=== PATIENT | female | born 1950 | race Caucasian/White ===

== ENCOUNTER → 2016-08-13 | Outpatient (CLI) | payer MEDICARE, BC ==
[2015-06-25 11:03] VITALS: BP 145/89
[~2016-08-13] MED LIST: high blood pressure; thyroid
--- NOTE | 2016-08-13 13:39 | RAD ---
DATE: 08/13/16 EXAM: DIGITAL DIAGNOSTIC BILATERAL HISTORY: Follow-up asymmetric density in the left breast COMPARISON: Bilateral screening mammogram from 3-16 and diagnostic left mammogram from 9-60 This study was interpreted with the benefit of Computerized Aided Detection (CAD). TECHNIQUE: Routine CC and MLO views of both breasts are obtained. FINDINGS: The breast tissue density is [D ] . Extremely dense breast parenchyma, this reduces the sensitivity of mammograms. There are no dominant suspicious masses, suspicious microcalcifications or evidence of architectural distortion. Stable benign-appearing calcifications are seen in both breasts. Skin and nipples are intact IMPRESSION: Benign findings BI-RADS CATEGORY: 2 BENIGN FINDING(S) RECOMMENDED FOLLOW-UP: 12M 12 MONTH FOLLOW-UP PQRS compliance statement: Patient information was entered into a reminder system with a target due date for the next mammogram. Mammography is a sensitive method for finding small breast cancers, but it does not detect them all and is not a substitute for careful clinical examination. A negative mammogram does not negate a clinically suspicious finding and should not result in delay in biopsying a clinically suspicious abnormality. "Our facility is accredited by the [employer] Mammography [employer]."
== END | disposition home or self-care (01) ==
LOC: MAMMO 09:13
PROVIDERS: ATTEND Internal Medicine Hematology & Oncology
DX: R92.8 Other abnormal and inconclusive findings on diagnostic imaging of breast (principal); N63 Unspecified lump in breast
CPT/HCPCS: G0204; 77066

== ENCOUNTER → 2017-08-15 | Outpatient (CLI) | payer MEDICARE, BC | END | disposition home or self-care (01) | LOC: MAMMO 09:03 | DX: Z12.31 Encounter for screening mammogram for malignant neoplasm of breast (principal); N60.91 Unspecified benign mammary dysplasia of right breast | CPT/HCPCS: 77066; G0279 ==

== ENCOUNTER → 2018-03-14 | Outpatient (CLI) | payer MEDICARE, BC ==
[2015-06-25 11:03] VITALS: BP 145/89
[~2018-03-14] MED LIST changes: +CARV25TA2 PO; +COLE1TAB2 PO; +LEVO50TA5 PO
--- NOTE | 2018-03-14 13:01 | KCIC ---
MRI Lumbar Spine without contrast History: Sacroiliac pain, low back pain for 15 years, leg pain at times Technique: Multiplanar, multi sequential noncontrast MR imaging was performed of the lumbar spine. Contrast: None Comparison: None Findings: Lumbar vertebral body stature is overall preserved, mild superior endplate concavity of L3 without associated marrow edema. There is grade 1 anterior spondylolisthesis at L3-4 and to lesser degree at L4-5. There is moderate to severe degenerative disc disease at L5-S1 and to a somewhat lesser degree at L3-4, mild degenerative disc disease at L4-5, and mild disc desiccation L2-3. Conus terminates at L1. There is no significant marrow edema. There is degenerative endplate change L5-S1. There is retroaortic left renal vein. L2-L3: There is minimal buckling of the ligamentum flavum. Neural foramina and spinal canal are adequate. L3-L4: There is mild buckling of the ligamentum flavum and mild to moderate facet degenerative change. There is minimal partial uncovering of the posterior aspect of the disc due to spondylolisthesis. There is very minimal superimposed bulge. There is posterior annular tear. Spinal canal and neural foramina are adequate. L4-L5: There is minimal posterior bulge. There is posterior annular tear. Spinal canal is adequate. There is minimal facet degenerative change. Neural foramina are overall adequate. L5-S1: Spinal canal and neural foramina are adequate. Impression: 1. There is no significant lumbar spinal stenosis or neural foramina compromise. There is mild grade 1 anterior spondylolisthesis at L3-4 and to lesser degree L4-5. There is moderate to severe degenerative disc disease at L5-S1 and to a somewhat lesser degree at L3-4, minimally at L4-5. Electronically signed by: Tony Barker MD (03/14/2018 12:57 PM) [id number]
== END | disposition home or self-care (01) ==
LOC: KCIC MRI 12:02
PROVIDERS: ATTEND Orthopaedic Surgery Sports Medicine
DX: M51.37 Other intervertebral disc degeneration, lumbosacral region (principal); M43.16 Spondylolisthesis, lumbar region; I10 Essential (primary) hypertension; E03.9 Hypothyroidism, unspecified; Z90.49 Acquired absence of other specified parts of digestive tract; Z90.710 Acquired absence of both cervix and uterus
CPT/HCPCS: 72148

== ENCOUNTER → 2018-03-16 | Outpatient (CLI) | payer MEDICARE, BC ==
[2015-06-25 11:03] VITALS: BP 145/89
[~2018-03-16] MED LIST changes: +BUPIVACAINE MPF 0.25% 10 ML VIAL. ONE; +IOHEXOL 180 MG/ML 10 ML VIAL. ONE; +LIDOCAINE 2% PF Vial for OR 5 ML VIAL. ONE; +methylPREDNISolone ACETATE 40 MG/ML VIAL. ONE; +methylPREDNISolone ACETATE 80 MG/ML VIAL. ONE
--- NOTE | 2018-03-17 03:03 | PAIN ---
DATE OF SERVICE: 03/16/2018 INITIAL CONSULTATION FOR PAIN CLINIC CHIEF COMPLAINT: Low back and bilateral lower extremity pain. HISTORY OF PRESENT ILLNESS: This is a 67-year-old female with history of pain in the low back and bilateral lower extremities for many years. The patient reports it is essentially equal in right and left since early , did not result in any specific injury or accident that she is aware of, gradually increased over time, has been getting much worse over the past year or so. The patient reports it awakens her from sleep once or twice at night, affects her bowel or bladder control and affects her ability to walk at times, mainly with the pain in the posterior hips and low back itself, but the pain can radiate into the lower extremities, both anterior and posterior, laterally, medially into the lower legs to the feet, again right equal to left, usually with walking or standing. The patient has had physical therapy about a year ago, which did not significantly help decrease the pain significantly. The patient has been taking Aleve, which does decrease the pain by about 50%, but it takes about half an hour before she notices the difference after she takes it. The patient reports she enjoys walking and traveling and is not able to do this as easily with pain at this level currently, as well as some difficulty sleeping. The patient did have x-rays of the hips showing no acute pelvic right hip abnormalities and also lumbar MRI scan showing [id number] degenerative disk disease at L5-S1, lesser degree at L3-L4 and L4-L5 with very minimal superimposed disk bulge at L3-L4. The patient rates her disability from 0-10, 10 being the worst, 5 with family home responsibilities, recreational activities, social activity, occupation, sexual behavior, 0 with self-care and 0 with life support activities. The patient reports no loss of motor function with significant fatigability in the bilateral lower extremities with ambulation, again better with sitting or lying down, but again the pain is waking her from sleep. PAST MEDICAL HISTORY: Significant for hypertension, hypothyroidism. PREVIOUS SURGERY: Includes partial thyroidectomy, bilateral cataract extractions, hysterectomy, cholecystectomy, hernia repair, and breast biopsy, which was benign. CURRENT MEDICATIONS: Include carvedilol, colestipol, and levothyroxine. ALLERGIES: The patient has no known drug allergies. FAMILY HISTORY: Significant for cancers. SOCIAL HISTORY: The patient does not drink alcohol, does not smoke, does not use any illegal, illicit or recreational drugs. He is , lives with her spouse, lives locally in [place], [place] and is currently retired. REVIEW OF SYSTEMS: The patient's review of systems is positive for those items mentioned in history of present illness. All systems reviewed and otherwise negative. It is complete, full and well documented on the patient's chart. PHYSICAL EXAMINATION: VITAL SIGNS: The patient's blood pressure is 133/85, pulse is 54, respirations 18, temperature is 98.0 degrees Fahrenheit, height is 5 feet 5 inches, weight is 165 pounds. GENERAL: The patient is awake, alert, oriented, appropriate, very pleasant demeanor. HEENT: Head shows normocephalic, atraumatic. Extraocular movements are intact, symmetrical. Oral cavity: Mucous membranes are moist and pink. Dentition is intact. NECK: Shows anterior throat supple without palpable lymphadenopathy noted. Swallow reflex is symmetrical. CHEST: Shows normal on inspection. Breath sounds clear to auscultation bilaterally. HEART: Shows S1, S2 clear. No murmurs auscultated. ABDOMEN: Soft, nontender, nondistended. No palpable organomegaly is noted. No rebound or guarding demonstrated. BACK: Shows spine grossly in the midline. Normal appearing thoracic kyphosis and lumbar lordotic curvature. No previous scars are noted. Lumbar paraspinous muscle shows symmetrical on inspection, with palpation shows some mild tenderness in the inferior aspect of the cervical or the lumbar paraspinous musculature bilaterally, but is symmetrical without evidence of atrophy, hypertrophy. No tenderness over the sacrum or the spinous processes. Sacroiliac palpation in the posterior superior iliac spine, as well as the sacroiliac region itself is very tender with palpation, even moderate palpation and very, very tender without radiation bilaterally, essentially equal right and left. The patient has good rotational motion of lumbar spine, both laterally, as well as extension and flexion greater than 10 degrees and forward flexion 45 degrees without significant pain reported. LOWER EXTREMITIES: Show deep tendon reflexes are 2+ at patellar, 1+ at tendo calcaneus tendons. Motor exam is strong with 5/5 dorsiflexion, extension, quadriceps and hamstring flexion and symmetrical. Peripheral pulses are 1+, posterior tibial. No peripheral edema is noted. Lower extremities are warm and dry to touch, equal in color and appearance. Straight leg raise noted to be negative for reproduction of any radicular symptoms. Gaenslen's maneuver; however, is positive, more on the right than the left with very mildly positive on the left. Edinson's maneuver is negative bilaterally. The patient does have some mild tenderness over the greater trochanter on the right hip, but not the left. The patient is able to stand, stand on her toes without difficulty or loss of balance, walks with a normal appearing gait without any assistive devices. SKIN: The patient's skin shows warm and dry, good turgor. No edema. No sores, rashes or bruising. IMPRESSION: 1. This is a 67-year-old female with long history, approximately 18 years, of low back pain to some extent, another with some radiation to the lower extremities as well, but with significant tenderness over the sacroiliac joints consistent with sacroiliitis. 2. Hypertension. PLAN: Options were discussed with the patient including conservative medical management, physical therapy, interventional techniques and she elected to proceed with interventional techniques. We discussed bilateral sacroiliac joint injections with the patient using description, as well as anatomical models to describe the procedure. Risks were then discussed including, but not limited to bleeding, infection, possibility of intravascular injection sequelae, spread of local anesthetic and numbness, side effects of steroid medication and poor results regarding pain control. The patient understands and wished to proceed. The patient to return to clinic in approximately 2 weeks for followup or as necessary and is scheduled to see neurosurgery for evaluation regarding her lumbar MRI scan. DIAGNOSIS: Bilateral sacroiliitis. PROCEDURE: Bilateral sacroiliac joint injections using C-arm fluoroscopic guidance under sterile prep and drape using local anesthetic. MEDICATIONS INJECTED: A total of 80 mg of Depo-Medrol, 40 mg per side and total of 6 mL of 0.25% bupivacaine, 3 mL per side after negative aspiration and a total of 3 mL of Isovue contrast. 1.5 mL on each side. CONDITION ON DISCHARGE: Stable. The patient tolerated the procedure well, had no complications. RONN MATHEW MD DR: CHRIS/alis JOB#: [id number] / [id number]
== END | disposition home or self-care (01) ==
LOC: PNCL 10:31
PROVIDERS: ATTEND Anesthesiology
DX: M46.1 Sacroiliitis, not elsewhere classified (principal); I10 Essential (primary) hypertension; Z90.710 Acquired absence of both cervix and uterus; Z79.899 Other long term (current) drug therapy; E89.0 Postprocedural hypothyroidism; Z90.49 Acquired absence of other specified parts of digestive tract; Z98.890 Other specified postprocedural states; Z98.42 Cataract extraction status, left eye; Z98.41 Cataract extraction status, right eye; Z96.1 Presence of intraocular lens
CPT/HCPCS: G0260; J1040; J2001; J3490; Q9965; 27096; 77002; J1030

== ENCOUNTER → 2018-06-22 | Outpatient (CLI) | payer MEDICARE, BC ==
[2015-06-25 11:03] VITALS: BP 145/89
[~2018-06-22] MED LIST changes: -BUPIVACAINE MPF 0.25% 10 ML VIAL. ONE; -LIDOCAINE 2% PF Vial for OR 5 ML VIAL. ONE
--- NOTE | 2018-06-22 17:01 | PAIN ---
DATE OF SERVICE: 06/22/2018 DIAGNOSES: 1. Bilateral sacroiliitis. 2. Lumbar radiculopathy with lumbar degenerative disk disease. HISTORY OF PRESENT ILLNESS: The patient is a 67-year-old female who returns for followup status post bilateral sacroiliac joint injection on 03/16/2018. The patient reports no significant decrease in pain on long-term, only very minimal decrease initially and only very briefly. The patient reports pain still in the low back and radiating to bilateral lower extremities into the lower legs and into the feet, mostly posterior lateral thighs, lateral anterior thighs, medial thighs, lower legs into the posterior calf, lateral calf, right greater than left, but present bilaterally. It is worse with standing, walking, especially climbing hills or stairs, described as aching, sharp, shooting, tingling, radiating, on and off in intensity, better with sitting or lying down, but awakens her from sleep occasionally, not every night. The patient reports it is an 8 on a scale of 10 at its worst, 8 on average, 7 at its least, is an 8 today. The patient reports no loss of motor function with significant pain with walking, standing, changing positions, again in a radicular pattern into the feet bilaterally, worse on the right. The patient reports no new motor or sensory deficits, no new bowel or bladder incontinence or other complaints. PHYSICAL EXAMINATION: VITAL SIGNS: The patient's blood pressure 136/80, pulse 59, respirations 16, temperature 97.9 degrees Fahrenheit, height is 5 feet 5 inches, weight 166 pounds. GENERAL: The patient is awake, alert, oriented, appropriate, very pleasant demeanor. HEENT: Head shows normocephalic, atraumatic. Extraocular movements are intact and symmetrical. Oral cavity, mucous membranes are moist and pink. Dentition is intact. NECK: Shows anterior throat supple without palpable lymphadenopathy noted. Swallow reflex symmetrical. CHEST: Shows normal with inspection. Breath sounds clear to auscultation bilaterally. HEART: Shows S1, S2 clear. No murmurs auscultated. ABDOMEN: Soft, nontender, nondistended. No palpable organomegaly is noted. No rebound or guarding demonstrated. BACK: Shows spine grossly in the midline. Normal appearing thoracic kyphosis, some minor flattening of lumbar lordotic curvature. Lumbar paraspinous muscle shows symmetrical on inspection, with palpation shows some moderate tenderness only diffusely in the low lumbar distribution. The patient has good rotational motion of lumbar spine, both laterally as well as extension and flexion without difficulty and only very mild tenderness over the sacroiliac regions and the posterior superior iliac spine on exam today without radiation. EXTREMITIES: Lower extremities show deep tendon reflexes 2+ in the patellar, 1+ tendo calcaneus tendons. Motor exam is strong with 5/5 dorsiflexion, extension, quadriceps and hamstring flexion and symmetrical. Peripheral pulses are 1+ posterior tibial. No peripheral edema is noted bilaterally. Options were discussed with the patient. The patient's old chart was reviewed, as her current medication regimen updated. Current review of systems updated today as well. We will proceed with a lumbar epidural steroid injection today with fluoroscopic guidance. Risks were again discussed including, but not limited to bleeding, infection, possibility of epidural hematoma and subsequent neurological compromise, dural puncture headache, spinal cord and/or nerve damage, side effects of steroid medication and poor results regarding pain control. The patient understands and wished to proceed. The patient to return to clinic in approximately 2 weeks for followup, was counseled on return appointment, activity level and side effects to be aware of. DIAGNOSES: Lumbar radiculopathy with lumbar degenerative disk disease. PROCEDURE: Lumbar epidural steroid injection, translaminar approach at L4-L5 level using C-arm fluoroscopic guidance under sterile prep and drape using local anesthetic. MEDICATION INJECTED: A total of 120 mg Depo-Medrol, plus 10 mL of preservative-free normal saline, 2 mL Isovue for contrast. CONDITION AT DISCHARGE: Stable. The patient tolerated the procedure well, had no complications. RONN MATHEW MD DR: CHRIS/alis JOB#: [id number] / [id number]
== END | disposition home or self-care (01) ==
LOC: PNCL 13:58
PROVIDERS: ATTEND Anesthesiology
DX: M51.16 Intervertebral disc disorders with radiculopathy, lumbar region (principal); M46.1 Sacroiliitis, not elsewhere classified
CPT/HCPCS: 62323; J1030; J1040; Q9965

== ENCOUNTER → 2018-07-06 | Outpatient (CLI) | payer MEDICARE, BC ==
[2015-06-25 11:03] VITALS: BP 145/89
[~2018-07-06] MED LIST changes: -IOHEXOL 180 MG/ML 10 ML VIAL. ONE; -methylPREDNISolone ACETATE 40 MG/ML VIAL. ONE; -methylPREDNISolone ACETATE 80 MG/ML VIAL. ONE
--- NOTE | 2018-07-06 12:09 | PAIN ---
DATE OF SERVICE: 07/06/2018 DIAGNOSES: Lumbar radiculopathy with lumbar degenerative disk disease. HISTORY OF PRESENT ILLNESS: The patient is a 67-year-old female who returns for followup status post lumbar epidural steroid injection x 1. The patient reports she did very well with about 75% improvement initially, now reports 40% improvement overall, but still doing quite well. The patient reports increase in her activity with greater ease and comfort, doing household activities, walking greater distances, climbing stairs, standing on ladders and doing quite well. The pain in her legs is completely gone. She still has some pain across the low back, which is only minimal. The patient reports it is a 4-5 on a scale of 10 at its worst, on average and a 4 at its least and is a 4 today. The patient reports no new motor or sensory deficits, no new bowel or bladder incontinence, with increase in activity is noted. Reports the pain still aching and dull in the low back itself, but the legs are doing much better. The patient reports no new changes or deficits. PHYSICAL EXAMINATION: VITAL SIGNS: The patient's blood pressure 156/92, pulse 63, respirations are 16, temperature is 97.6 degrees Fahrenheit, height is 5 feet 5 inches, weight is 161 pounds. GENERAL: The patient is awake, alert, oriented, appropriate, very pleasant demeanor. HEENT: Head is normocephalic, atraumatic. Extraocular movements intact and symmetrical. Oral cavity: Mucous membranes moist and pink. Dentition is intact. NECK: Shows anterior throat supple without palpable lymphadenopathy noted. Swallow reflex symmetrical. CHEST: Shows normal with inspection. Breath sounds clear to auscultation bilaterally. HEART: Shows S1, S2 clear. No murmurs auscultated. ABDOMEN: Soft, nontender, nondistended. No palpable organomegaly is noted. No rebound or guarding demonstrated. BACK: Shows spine grossly in the midline. Normal appearing thoracic kyphosis and lumbar lordotic curvature. Lumbar paraspinous muscle shows symmetrical on inspection, on palpation shows some moderate tenderness only diffusely without significant radiation. The patient has good rotational motion of lumbar spine, both laterally as well as extension and flexion without difficulty. EXTREMITIES: Lower extremities show deep tendon reflexes at 2+ in the patellar, 1+ tendo-calcaneus tendons. Motor exam is strong with 5/5 dorsiflexion, extension, quadriceps and hamstring flexion symmetrical. Peripheral pulses are 1+ posterior tibia. No peripheral edema is noted bilaterally. Options were discussed with the patient. The patient's old chart was reviewed as her current medication regimen updated. Current review of systems updated today as well. We will hold on any further injections per the patient's choice at this time as she feels she is doing very well. I would like to continue to increase activity as tolerated. We will have the patient return to clinic on an as needed basis and increase activity cautiously but without significant limitation at this time or restriction, and the patient will follow up on as needed basis. RONN MATHEW MD DR: CHRIS/alis JOB#: [id number] / [id number]
== END | disposition home or self-care (01) ==
LOC: PNCL 11:08
PROVIDERS: ATTEND Anesthesiology
DX: M51.16 Intervertebral disc disorders with radiculopathy, lumbar region (principal)
CPT/HCPCS: G0463

== ENCOUNTER → 2018-08-16 | Outpatient (CLI) | payer MEDICARE, BC ==
[2015-06-25 11:03] VITALS: BP 145/89
--- NOTE | 2018-08-16 13:15 | RAD ---
DATE: 08/16/2018 EXAM: MAMMO ARMIN SCREENING BILATERAL HISTORY: Routine screening COMPARISON: 08/15/2017 This study was interpreted with the benefit of Computerized Aided Detection (CAD). Breast Density: HETERO The breast parenchyma is heterogenously dense, which could reduce sensitivity of mammography. Breast parenchyma level C. FINDINGS: 2-D and 3-D tomosynthesis imaging was performed in CC and MLO projections. No new or enlarging breast densities are seen. Benign type calcifications are present. No suspicious microcalcifications have developed. IMPRESSION: Stable mammograms without evidence of malignancy. BI-RADS CATEGORY: 2 BENIGN FINDING(S) RECOMMENDED FOLLOW-UP: 12M 12 MONTH FOLLOW-UP PQRS compliance statement: Patient information was entered into a reminder system with a target due date for the next mammogram. Mammography is a sensitive method for finding small breast cancers, but it does not detect them all and is not a substitute for careful clinical examination. A negative mammogram does not negate a clinically suspicious finding and should not result in delay in biopsying a clinically suspicious abnormality. "Our facility is accredited by the [employer] Mammography Program."
== END | disposition home or self-care (01) ==
LOC: MAMMO 10:04
PROVIDERS: ATTEND Internal Medicine Hematology & Oncology
DX: Z12.31 Encounter for screening mammogram for malignant neoplasm of breast (principal)
CPT/HCPCS: 77063; 77067

== ENCOUNTER → 2018-11-15 | Outpatient (CLI) | payer MEDICARE, BC ==
[2015-06-25 11:03] VITALS: BP 145/89
[~2018-11-15] MED LIST changes: +IOHEXOL 180 MG/ML 10 ML VIAL. ONE; +methylPREDNISolone ACETATE 40 MG/ML VIAL. ONE; +methylPREDNISolone ACETATE 80 MG/ML VIAL. ONE
--- NOTE | 2018-11-16 02:29 | PAIN ---
DATE OF SERVICE: 11/15/2018 PROGRESS NOTE FOR PAIN CLINIC DIAGNOSES: Lumbar radiculopathy with lumbar degenerative disk disease. HISTORY OF PRESENT ILLNESS: The patient is a 68-year-old female who returns for followup status post lumbar epidural steroid injection x 1 on 06/22/2018. The patient did very well with about 40% improvement overall. The patient reports that the pain is returning to some extent in the low back and right leg greater than the left but present bilaterally in the posterior gluteus, lateral thighs, anterior medial thigh on the right more than the left but present bilaterally. The patient reports she has been increasing for about 2 months. She has been initially increasing her distance walking and doing activities at home, travel with greater ease and comfort. She does have a trip coming up in about a week and she would like to get feeling better before she travels because will be doing a lot of walking on her trip. The patient reports she is sleeping well at night, does not bother her when she is sitting or lying down, sleeps 7-8 hours without difficulty and only when she is standing, walking or changing positions as she noticed the pain. The patient reports over the past week, it has been a 7 on a scale of 10 at its worst, 7 on average, 6 at its least and is a 6 today. The patient reports it is aching and dull, stabbing at times and radiating into the right leg greater than the left. The patient reports no new motor or sensory deficits and no new bowel or bladder incontinence or other complaints. PHYSICAL EXAMINATION: VITAL SIGNS: Today, the patient's blood pressure is 126/76, pulse 57, respirations are 16 and temperature is 98.1 degrees Fahrenheit. Weight is 166 pounds. GENERAL: The patient is awake, alert, oriented, appropriate and very pleasant demeanor. HEENT: Shows normocephalic and atraumatic. Extraocular movements are intact and symmetrical. Oral cavity: Mucous membranes are moist and pink. Dentition is intact. NECK: Shows anterior throat supple without palpable lymphadenopathy noted. Swallow reflex is symmetrical. CHEST: Shows normal on inspection. Breath sounds are clear bilaterally. HEART: Shows S1 and S2 clear. No murmurs auscultated. ABDOMEN: Soft, nontender and nondistended. No palpable organomegaly is noted. No rebound or guarding demonstrated. BACK: Shows spine grossly in the midline. Normal appearing thoracic kyphosis, some minor flattening of lumbar lordotic curvature. Lumbar paraspinous musculature shows symmetrical on inspection and palpation shows some mild tenderness, but only diffusely in the middle and lower distribution of the paraspinous muscles. The patient has good rotational motion of the lumbar spine both laterally as well as extension and flexion without difficulty. EXTREMITIES: Lower extremities show deep tendon reflexes 2+ in the patellar, 1+ tendo-calcaneus tendons. Motor exam is strong with 5/5 dorsiflexion, extension, quadriceps and hamstring flexion and symmetrical. Peripheral pulses are 1+ posterior tibia. No peripheral edema is noted. Options were discussed with the patient. The patient's old chart was reviewed as well as her current medication regimen updated. Current review of systems updated today as well. We will proceed with a lumbar epidural steroid injection today with fluoroscopic guidance. Risks were again discussed including, but not limited to bleeding, infection, possibility of epidural hematoma and subsequent neurological compromise, dural puncture, headaches, spinal cord and/or nerve damage, side effects of steroid medication and poor results regarding pain control. The patient understands and wished to proceed. The patient will return to the clinic in approximately 2 weeks for followup, was counseled as to return appointment, activity level and side effects to be aware of. DIAGNOSIS: Lumbar radiculopathy with lumbar degenerative disk disease. PROCEDURES: Lumbar epidural steroid injection, translaminar approach at L4-L5 level using C-arm fluoroscopic guidance under sterile prep and drape using local anesthetic. MEDICATION INJECTED: A total of 120 mg Depo-Medrol plus 10 mL of preservative-free normal saline and 2 mL of Isovue for contrast. CONDITION AT DISCHARGE: Stable. The patient tolerated the procedure well, had no complications. RONN MATHEW MD DR: CHRIS/alis JOB#: [id number] / [id number]
== END ==
LOC: PNCL 08:53
PROVIDERS: ATTEND Anesthesiology
DX: M51.16 Intervertebral disc disorders with radiculopathy, lumbar region (principal); M54.5 Low back pain; M79.652 Pain in left thigh; M79.651 Pain in right thigh
CPT/HCPCS: 62323; J1030; J1040; Q9965

== ENCOUNTER → 2019-08-20 | Outpatient (CLI) | payer MEDICARE, BC ==
[2015-06-25 11:03] VITALS: BP 145/89
[~2019-08-20] MED LIST changes: -IOHEXOL 180 MG/ML 10 ML VIAL. ONE; -methylPREDNISolone ACETATE 40 MG/ML VIAL. ONE; -methylPREDNISolone ACETATE 80 MG/ML VIAL. ONE
--- NOTE | 2019-08-20 18:54 | RAD ---
BILATERAL SCREENING MAMMOGRAM, 3-D History: Routine screening. Comparison: 08/16/2018, 08/15/2017, 08/13/2016, 08/13/2015. Technique: MLO and CC digital tomosynthesis (3D) images obtained. Radiologist reviewed these images on dedicated workstation. Findings: Breast Tissue Density C : The breasts are heterogeneously dense, which may obscure small masses. There are no dominant masses, suspicious microcalcifications, or architectural distortion. Benign calcifications are present. IMPRESSION: No mammographic evidence of malignancy. Recommend routine screening. BI-RADS category 1: Negative. The images were reviewed with computer-aided detection. Patient information is entered into reminder system with a target due date for the next screening mammogram. Mammography is the most sensitive method for finding small breast cancers, but it does not detect them all and is not a substitute for careful clinical examination. A negative mammogram does not negate a clinically suspicious finding and should not result in delay in biopsying a clinically suspicious abnormality. "Our facility is accredited by the [employer] Mammography [employer]." Electronically signed by: Juan M Garcia MD (08/20/2019 6:52 PM) [id number]
== END ==
LOC: MAMMO 08:51
PROVIDERS: ATTEND Internal Medicine Hematology & Oncology
DX: Z12.31 Encounter for screening mammogram for malignant neoplasm of breast (principal)
CPT/HCPCS: 77063; 77067

== ENCOUNTER → 2020-10-27 | Outpatient (CLI) | payer MEDICARE, BC ==
[2015-06-25 11:03] VITALS: BP 145/89
--- NOTE | 2020-10-27 10:50 | RAD ---
EXAM: Bilateral digital screening mammogram with tomosynthesis. HISTORY: 70-year-old female presents for screening mammography. TECHNIQUE: Full-field digital craniocaudal and mediolateral oblique 2D and 3D tomosynthesis images of both breasts are obtained for evaluation. Computer aided detection was applied. COMPARISON: 08/16/2018 BREAST PARENCHYMAL DENSITY: Level D - Extremely dense. FINDINGS: There is no new suspicious mass, microcalcification or region of architectural distortion. IMPRESSION: BI-RADS Category 2: Benign finding(s). RECOMMENDATION: Annual mammography is recommended. If your mammogram demonstrates that you have dense breast tissue, which could hide abnormalities, and if you have other risk factors for breast cancer that have been identified, you might benefit from s upplemental screening tests that may be suggested by your ordering physician. Dense breast tissue, i n and of itself, is a relatively common condition. This information is not provided to cause undue c oncern, but rather to raise your awareness and to promote discussion with your physician regarding th e presence of other risk factors, in addition to dense breast tissue. A report of your mammography re sults will be sent to you and your physician. You should contact your physician if you have any ques tions or concerns regarding this report. Mammography is a sensitive method for finding small breast cancers, but it does not detect them all a nd is not a substitute for careful clinical examination. A negative mammogram does not negate a clin ically suspicious finding and should not result in delay in biopsying a clinically suspicious abnorma lity. PQRS compliance statement - Patient information was entered into a reminder system with a target due date for the next mammogram. "Our facility is accredited by the [employer]amm[employer]." Electronically signed by: Payal Munoz MD (10/27/2020 10:48 AM) [id number]
== END ==
LOC: MAMMO 10:28
PROVIDERS: ATTEND Internal Medicine Hematology & Oncology
DX: Z12.31 Encounter for screening mammogram for malignant neoplasm of breast (principal)
CPT/HCPCS: 77063; 77067

== ENCOUNTER → 2021-10-28 | Outpatient (CLI) | payer MEDICARE, BC ==
[2015-06-25 11:03] VITALS: BP 145/89
--- NOTE | 2021-10-28 16:29 | RAD ---
EXAM: BILATERAL DIGITAL 3D SCREENING MAMMOGRAPHY. HISTORY: Routine mammographic screening. TECHNIQUE: Bilateral digital 3D and tomographic images were obtained in CC and MLO projections. Compu ter-aided detection was applied. COMPARISON: 10/27/2020. COMPOSITION: D. The breasts are extremely dense, which lowers the sensitivity of mammography. FINDINGS: There are no suspicious masses, microcalcifications or architectural distortion. The parenc hymal pattern is stable. Coarse calcifications are benign. BI-RADS CATEGORY 2: Benign. RECOMMENDATION: 1. Routine screening mammography in one year. If mammography demonstrates dense breast tissue (heterogenously dense or extremely dense, category C or D), which could hide abnormalities, and if other risk factors for breast cancer have been identifi ed, supplemental screening tests that may be suggested by the ordering physician may be of benefit. D ense breast tissue, in and of itself, is a relatively common condition. Therefore, this information i s not provided to cause undue concern, but rather to raise awareness and to promote discussion with t he referring physician regarding the presence of other risk factors, in addition to dense breast tiss ue. The results of this mammography examination is provided to the patient and referring physician. T he patient should contact their referring physician if any questions or concerns exist regarding this report. PQRS compliance statement - Patient information was entered into a reminder system with a target due date for the next mammogram. "Our facility is accredited by the [employer] Mammography [employer]." Electronically signed by: John Su MD (10/28/2021 4:27 PM) [id number]
== END ==
LOC: MAMMO 07:44
PROVIDERS: ATTEND Internal Medicine Hematology & Oncology
DX: Z12.31 Encounter for screening mammogram for malignant neoplasm of breast (principal)
CPT/HCPCS: 77063; 77067